=== PATIENT | male | born 1995 | race African-American/Black ===

== ENCOUNTER 2022-11-23 13:13 | Emergency (ER) | payer SELFPAY ==
[2022-11-23] MEDS ORDERED: KETOROLAC 30 MG/ML VIAL IVP STA (13:28)
[2022-11-23] MEDS ORDERED: LACTATED RINGERS 1,000 ML IV ONE ×2 (13:30→14:15)
[2022-11-23] MEDS ORDERED: ONDANSETRON 4 MG/2 ML (SDV) Z0FRAN IVP ONE (13:30)
[2022-11-23 13:38] LABS: BASOPHILS % (AUTO) 0 % (0-10); EOSINOPHILS # (AUTO) 0.3 10^3/uL (0.0-0.3); EOSINOPHILS % (AUTO) 2 % (0-10); HEMATOCRIT 41 % (40-54); LYMPHOCYTES # (AUTO) 1.8 10^3/uL (1.0-4.0); LYMPHOCYTES % (AUTO) 16 % (12-44); MEAN CORPUSCULAR HEMOGLOBIN 30 pg (25-34); MEAN CORPUSCULAR HGB CONC 34 g/dL (32-36); MEAN CORPUSCULAR VOLUME 89 fL (80-99); MEAN PLATELET VOLUME 9.3 fL (9.0-12.2); MONOCYTES # (AUTO) 0.6 10^3/uL (0.0-1.0); MONOCYTES % (AUTO) 5 % (0-12); NEUTROPHILS # (AUTO) 8.7 10^3/uL (1.8-7.8); NEUTROPHILS % (AUTO) 77 % (42-75); PLATELET COUNT 253 10^3/uL (130-400); WHITE BLOOD COUNT 11.3 10^3/uL (4.3-11.0)
[2022-11-23 13:40] LABS: ALBUMIN 4.5 GM/DL (3.2-4.5); CHLORIDE 103 MMOL/L (98-107); POTASSIUM 3.9 MMOL/L (3.6-5.0); SODIUM 139 MMOL/L (135-145)
[2022-11-23 13:41] LABS: CALCIUM 9.3 MG/DL (8.5-10.1)
[2022-11-23 13:42] LABS: GLUCOSE 121 MG/DL (70-105); TOTAL PROTEIN 7.2 GM/DL (6.4-8.2)
[2022-11-23 13:43] LABS: CARBON DIOXIDE 26 MMOL/L (21-32)
[2022-11-23 13:44] LABS: BILIRUBIN,TOTAL 0.7 MG/DL (0.1-1.0)
[2022-11-23 13:46] LABS: ALKALINE PHOSPHATASE 70 U/L (40-136); CREATININE SERUM 1.26 MG/DL (0.60-1.30); GFR ESTIMATED 80
[2022-11-23 13:47] LABS: BUN/CREATININE RATIO 12
[2022-11-23 13:49] LABS: ALANINE AMINOTRANSFERASE 17 U/L (0-55)
--- NOTE | 2022-11-23 13:58 | ED Abdominal Pain ---
General Chief Complaint: Abdominal/GI Problems Stated Complaint: RIGHT SIDE ABD PAIN Nursing Triage Note: PT AMB TO RM 3 WITH CC OF R LOWER ABD PAIN SINCE 0400 TODAY. PT STATES HE HAS HAD THIS PAIN BEFORE WHEN HE HAD "SWOLLEN KIDNEYS." PT REPORTS TROUBLE URINATING, NAUSEA AND VOMITING. PT A&OX4 Source of Information: Patient History of Present Illness Date Seen by Provider: Nov 23, 2022 Time Seen by Provider: 13:20 Initial Comments PT ARRIVES VIA POV C/O RLQ PAIN THAT WOKE HIM UP AT 0400 THIS AM PAIN IS WORSE WITH ANY MOVEMENT, WALKING, STRAINING TO HAVE A BM. HE HAD A HARD BM AROUND 10 AM TODAY--CAUSED PAIN IN RLQ PRIOR TO ARRIVAL, HE HAD DIFFICULTY URINATING--TRIED TO VOID AND ONLY WENT A SMALL AMOUNT HE HAS HAD NAUSEA AND VOMITING ON ARRIVAL HERE NO KNOWN FEVER. DRANK WATER EARLIER TODAY. NO FOOD SINCE YESTERDAY TRIED OVER THE COUNTER AZO, AND TOOK AN OXYCODONE THAT HE GOT FROM "A FRIEND:. NO RELIEF. STATES HE HAS THIS ONCE BEFORE AND WAS TOLD HIS KIDNEY WAS SWOLLEN, NO HISTORY OF KIDNEY STONES--NEVER FOLLOWED UP WITH UROLOGY. NO PRIOR ABDOMINAL SURGERIES NO HISTORY OF GI PROBLEMS. NO CHRONIC MEDICAL PROBLEMS HE VAPES NICOTINE, HE USED TO DRINK--CLAIMS NONE X 4 YEARS, GETS OXYCODONE OFF THE STREET--USES DAILY. PCP: NONE, PER PT. HOWEVER, PT HAS BEEN A PT OF DR. CLIFTON IN THE PAST Allergies and Home Medications Allergies Coded Allergies: No Known Drug Allergies (Unverified , 11/23/22) Patient Home Medication List Home Medication List Reviewed: Yes Ciprofloxacin HCl (Ciprofloxacin HCl) 500 Mg Tablet, 500 MG PO BID Prescribed by: MARGARET GAMBOA on 11/23/22 145 Ketorolac Tromethamine (Ketorolac Tromethamine) 10 Mg Tablet, 10 MG PO Q6H Prescribed by: MARGARET GAMBOA on 11/23/22 145 Ondansetron (Ondansetron Odt) 8 Mg Tab.rapdis, 8 MG PO Q6H Prescribed by: MARGARET GAMBOA on 11/23/22 145 Tamsulosin HCl (Flomax) 0.4 Mg Cap, 0.4 MG PO DAILY Prescribed by: MARGARET GAMBOA on 11/23/22 145 Review of Systems Review of Systems Constitutional: no symptoms reported Respiratory: No Symptoms Reported Cardiovascular: No Symptoms Reported Gastrointestinal: See HPI, Abdominal Pain, Constipated; Denies Diarrhea; Nausea, Vomiting Genitourinary: See HPI, Flank Pain, Pain, Urgency Musculoskeletal: see HPI, back pain Skin: no symptoms reported Psychiatric/Neurological: No Symptoms Reported Endocrine: No Symptoms Reported Hematologic/Lymphatic: No Symptoms Reported Past Nhnonol-Scjnlt-Xshmmm Hx Patient Social History Tobacco Use?: No Use of E-Cig and/or Vaping dev: Yes E-Cig or Vaping type used: Nicotine Use of E-Cig and/or Vaping Navjot: Current Everyday User Substance use?: Yes Substance type: Opiates/Opioids, Misuse of prescript meds, Other Substance frequency: Daily Alcohol Use?: Yes Pt feels they are or have been: No Past Medical History Surgeries: No Respiratory: No Cardiac: No Neurological: No Reproductive Disorders: No Genitourinary: Yes (RIGHT HYDRONEPHROSIS) Gastrointestinal: No Musculoskeletal: No Endocrine: No HEENT: No Cancer: No Psychosocial: No Integumentary: No Blood Disorders: No Family Medical History SOCIAL HISTORY: -DENIES SMOKING CIGARETTES -VAPES NICOTINE -DRUGS--ADMITS TO CHRONIC/DAILY OXYCODONE USE. UDS + FOR COCAINE AND THC ON 11/23/22 -ETOH--HISTORY OF HEAVY USE, CLAIMS NONE X 4 YEARS, PER PT ON 11/23/22 Physical Exam Vital Signs Vital Signs - First Documented 11/23/22 13:20 Temp 35.8 Pulse 78 Resp 16 B/P (MAP) 149/99 (116) Pulse Ox 99 O2 Delivery Room Air Capillary Refill : Less Than 3 Seconds Height/Weight/BMI Height: '" Weight: lbs. oz. kg; BMI Method: General Appearance: WD/WN, other (VERY DRAMATIC, WALKS IN BENT AT WAIST, HOLDING LOWER ABDOMEN. ) Neck: normal inspection Respiratory: normal breath sounds, no respiratory distress, no accessory muscle use Cardiovascular: regular rate, rhythm Gastrointestinal: normal bowel sounds, soft, no organomegaly, no pulsatile mass; No distended, No guarding, No rebound; tenderness (RLQ); No hernia, No mass Extremities: normal inspection Back: no vertebral tenderness, CVA tenderness (R) Neurologic/Psychiatric: home visits nurse II-XII nml as tested, no motor/sensory deficits, alert, oriented x 3 Skin: normal color (PT IS BLACK), warm/dry, tattoos/piercings (MULTIPLE TATTOOS) Progress/Results/Core Measures Results/Orders Lab Results Laboratory Tests Test 11/23/22 13:24 11/23/22 14:25 Range/Units White Blood Count 11.3 H 4.3-11.0 10^3/uL Red Blood Count 4.63 4.30-5.52 10^6/uL Hemoglobin 14.0 13.3-17.7 g/dL Hematocrit 41 40-54 % Mean Corpuscular Volume 89 80-99 fL Mean Corpuscular Hemoglobin 30 25-34 pg Mean Corpuscular Hemoglobin Concent 34 32-36 g/dL Red Cell Distribution Width 11.8 10.0-14.5 % Platelet Count 253 130-400 10^3/uL Mean Platelet Volume 9.3 9.0-12.2 fL Immature Granulocyte % (Auto) 0 % Neutrophils (%) (Auto) 77 H 42-75 % Lymphocytes (%) (Auto) 16 12-44 % Monocytes (%) (Auto) 5 0-12 % Eosinophils (%) (Auto) 2 0-10 % Basophils (%) (Auto) 0 0-10 % Neutrophils # (Auto) 8.7 H 1.8-7.8 10^3/uL Lymphocytes # (Auto) 1.8 1.0-4.0 10^3/uL Monocytes # (Auto) 0.6 0.0-1.0 10^3/uL Eosinophils # (Auto) 0.3 0.0-0.3 10^3/uL Basophils # (Auto) 0.0 0.0-0.1 10^3/uL Immature Granulocyte # (Auto) 0.0 0.0-0.1 10^3/uL Erythrocyte Sedimentation Rate 1 0-15 MM/HR Sodium Level 139 135-145 MMOL/L Potassium Level 3.9 3.6-5.0 MMOL/L Chloride Level 103 98-107 MMOL/L Carbon Dioxide Level 26 21-32 MMOL/L Anion Gap 10 5-14 MMOL/L Blood Urea Nitrogen 15 7-18 MG/DL Creatinine 1.26 0.60-1.30 MG/DL Estimat Glomerular Filtration Rate 80 BUN/Creatinine Ratio 12 Glucose Level 121 H 70-105 MG/DL Calcium Level 9.3 8.5-10.1 MG/DL Corrected Calcium 8.9 8.5-10.1 MG/DL Total Bilirubin 0.7 0.1-1.0 MG/DL Aspartate Amino Transf (AST/SGOT) 27 5-34 U/L Alanine Aminotransferase (ALT/SGPT) 17 0-55 U/L Alkaline Phosphatase 70 40-136 U/L C-Reactive Protein High Sensitivity 0.07 0.00-0.50 MG/DL Total Protein 7.2 6.4-8.2 GM/DL Albumin 4.5 3.2-4.5 GM/DL Serum Alcohol < 10 <10 MG/DL Urine Color MICHAEL H Urine Clarity CLEAR Urine pH 7.0 5-9 Urine Specific [place] 1.015 L 1.016-1.022 Urine Protein NEGATIVE NEGATIVE Urine Glucose (UA) NEGATIVE NEGATIVE Urine Ketones NEGATIVE NEGATIVE Urine Nitrite POSITIVE H NEGATIVE Urine Bilirubin NEGATIVE NEGATIVE Urine Urobilinogen 1.0 < = 1.0 MG/DL Urine Leukocyte Esterase NEGATIVE NEGATIVE Urine RBC (Auto) 1+ H NEGATIVE Urine RBC 5-10 H /HPF Urine WBC NONE /HPF Urine Squamous Epithelial Cells NONE /HPF Urine Crystals NONE /LPF Urine Bacteria NEGATIVE /HPF Urine Casts NONE /LPF Urine Mucus NEGATIVE /LPF Urine Other N /HPF Urine Culture Indicated NO Urine Opiates Screen NEGATIVE NEGATIVE Urine Oxycodone Screen NEGATIVE NEGATIVE Urine Methadone Screen NEGATIVE NEGATIVE Urine Propoxyphene Screen NEGATIVE NEGATIVE Urine Barbiturates Screen NEGATIVE NEGATIVE Ur Tricyclic Antidepressants Screen NEGATIVE NEGATIVE Urine Phencyclidine Screen NEGATIVE NEGATIVE Urine Amphetamines Screen NEGATIVE NEGATIVE Urine Methamphetamines Screen NEGATIVE NEGATIVE Urine Benzodiazepines Screen NEGATIVE NEGATIVE Urine Cocaine Screen POSITIVE H NEGATIVE Urine Cannabinoids Screen POSITIVE H NEGATIVE My Orders Orders - MARGARET GAMBOA DO Ed Iv/Invasive Line Start (11/23/22 13:28) Monitor-Rhythm Ecg Trace Only (11/23/22 13:28) Ct Abd/Pelvis Wo(Kidney Stone) (11/23/22 13:28) Abdomen/Kub 1view (11/23/22 13:28) Alcohol (11/23/22 13:28) Cbc With Automated Diff (11/23/22 13:28) Comprehensive Metabolic Panel (11/23/22 13:28) Hs C Reactive Protein (11/23/22 13:28) Drug Screen Stat (Urine) (11/23/22 13:28) Ua Culture If Indicated (11/23/22 13:28) Erythrocyte Sedimentation Rate (11/23/22 13:28) Ed Iv/Invasive Line Start (11/23/22 13:28) Lactated Ringers (Lr 1000 Ml Iv Solution (11/23/22 13:30) Ondansetron Injection (Zofran Injectio (11/23/22 13:30) Ketorolac Injection (Toradol Injection) (11/23/22 13:28) Ed Iv/Invasive Line Start (11/23/22 14:14) Lactated Ringers (Lr 1000 Ml Iv Solution (11/23/22 14:15) Tamsulosin Capsule (Flomax Capsule) (11/23/22 14:15) Orphenadrine Inj (Ed Only) (Norflex Inje (11/23/22 14:15) Ceftriaxone 1 Gm Pre-Mix (Rocephin 1 Gm (11/23/22 15:00) Medications Given in ED Current Medications Medications Dose Ordered Sig/Agustina Route Start Time Stop Time Status Last Admin Dose Admin Ceftriaxone Sodium/Dextrose 50 ml @ 100 mls/hr ONCE ONCE IV 11/23/22 15:00 11/23/22 15:22 DC 11/23/22 15:10 100 MLS/HR Lactated Ringer's 1,000 ml @ 0 mls/hr Q0M ONCE IV 11/23/22 13:30 11/23/22 13:31 DC 11/23/22 13:36 1,000 MLS/HR Lactated Ringer's 1,000 ml @ 0 mls/hr Q0M ONCE IV 11/23/22 14:15 11/23/22 14:16 DC 11/23/22 14:29 1,000 MLS/HR Ondansetron HCl 4 mg ONCE ONCE IVP 11/23/22 13:30 11/23/22 13:31 DC 11/23/22 13:36 4 MG Orphenadrine Citrate 60 mg ONCE ONCE IVP 11/23/22 14:15 11/23/22 14:16 DC 11/23/22 14:23 60 MG Vital Signs/I&O 11/23/22 11/23/22 13:20 15:19 Temp 35.8 Pulse 78 81 Resp 16 16 B/P (MAP) 149/99 (116) 157/82 Pulse Ox 99 100 O2 Delivery Room Air Room Air Blood Pressure Mean: 116 Progress Progress Note : Progress Note GIVEN: -IV FLUIDS -ZOFRAN -TORADOL -FLOMAX -NORFLEX UNEVENTFUL ER STAY VITALS STABLE. SYMPTOMS IMPROVED AT DISMISSAL. NO PRIOR RECORDS HERE. DISCUSSED TEST RESULTS, NEED FOR FOLLOW UP WITH UROLOGIST, MEDICATIONS AND RETURN PRECAUTIONS. Diagnostic Imaging Comments KUB--PER RADIOLOGIST REPORT AT 1402 FINDINGS: Bowel gas pattern is nonspecific. There are no abnormal abdominal calcifications. The osseous structures are unremarkable. IMPRESSION: Nonspecific bowel gas pattern. CT ABDOMEN/PELVIS--PER RADIOLOGIST REPORT AT 1402 INDICATION: Flank pain. FINDINGS: The heart size is normal. The lung bases are clear. The liver is normal in size without focal lesions. Gallbladder is unremarkable. There is no biliary duct dilatation. Spleen is normal. Pancreas and adrenal glands are unremarkable. The left kidney is normal. There is moderate right hydronephrosis and this may reflect a congenital UPJ stenosis or possibly recently passed stone. The aorta is nonaneurysmal. The bowel gas pattern is nonspecific. No free air. No ascites. No pelvic mass, adenopathy or free fluid. The osseous structures are unremarkable. IMPRESSION: Moderate right hydronephrosis without evidence of underlying stone. 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 Recommend clinical correlation and if warranted follow up with ultrasound. No other acute abnormality in the abdomen or pelvis. Reviewed: Reviewed by Me Departure Impression Primary Impression: Hydronephrosis of right kidney Additional Impressions: POSSIBLE UPJ OBSTRUCTION/STRICTURE Illicit drug use Urinary tract infection Disposition: 01 HOME, SELF-CARE Condition: Stable Departure-Patient Inst. Decision time for Depature: 14:54 Referrals: MOUSTAPHA MANCUSO DO (PCP/Family) Primary Care Physician Patient Instructions: Hydronephrosis, Adult (DC), Urinary Tract Infection, Adult (DC) Add. Discharge Instructions: NO DRUGS !!! FOLLOW UP WITH UROLOGIST OF CHOICE FOR FURTHER CARE--YOU MAY CALL [facility], OR [facility] OR [facility] IN [place] FOR LIST OF UROLOGISTS. CALL IN THE MORNING TO SCHEDULE AN APPOINTMENT. All discharge instructions reviewed with patient and/or family. Voiced understanding. Scripts Ciprofloxacin HCl (Ciprofloxacin HCl) 500 Mg Tablet 500 MG PO BID, #14 TAB Prov: MARGARET GAMBOA DO 4/9/23 Ondansetron (Ondansetron Odt) 8 Mg Tab.rapdis 8 MG PO Q6H, #10 TAB Prov: MARGARET GAMBOA DO 11/23/22 Ketorolac Tromethamine (Ketorolac Tromethamine) 10 Mg Tablet 10 MG PO Q6H for Pain, #15 TAB Prov: MARGARET GAMBOA DO 11/23/22 Tamsulosin HCl (Flomax) 0.4 Mg Cap 0.4 MG PO DAILY, #10 CAP Prov: MARGARET GAMBOA DO 11/23/22 MARGARET GAMBOA DO Nov 23, 2022 13:58
--- NOTE | 2022-11-23 14:00 | Diagnostic Imaging Report ---
PROCEDURE: CT urinary tract, rule out kidney stone. TECHNIQUE: Multiple contiguous axial images were obtained through the abdomen and pelvis without the use of intravenous contrast. Auto Exposure Controls were utilized during the CT exam to meet ALARA standards for radiation dose reduction. INDICATION: Flank pain. FINDINGS: The heart size is normal. The lung bases are clear. The liver is normal in size without focal lesions. Gallbladder is unremarkable. There is no biliary duct dilatation. Spleen is normal. Pancreas and adrenal glands are unremarkable. The left kidney is normal. There is moderate right hydronephrosis and this may reflect a congenital UPJ stenosis or possibly recently passed stone. The aorta is nonaneurysmal. The bowel gas pattern is nonspecific. No free air. No ascites. No pelvic mass, adenopathy or free fluid. The osseous structures are unremarkable. IMPRESSION: Moderate right hydronephrosis without evidence of underlying stone. 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 Recommend clinical correlation and if warranted follow up with ultrasound. No other acute abnormality in the abdomen or pelvis. Dictated by: Dictated on workstation # [id number]
--- NOTE | 2022-11-23 14:00 | Diagnostic Imaging Report ---
INDICATION: Abdominal pain. FINDINGS: Bowel gas pattern is nonspecific. There are no abnormal abdominal calcifications. The osseous structures are unremarkable. IMPRESSION: Nonspecific bowel gas pattern. Dictated by: Dictated on workstation # [id number]
[2022-11-23 14:07] LABS: ERYTHROCYTE SEDIMENTATION RATE 1 MM/HR (0-15)
[2022-11-23] MEDS ORDERED: ORPHENADRINE 60 MG/2 ML (NORFLEX) AMP (ED ONLY) IVP ONE (14:15)
[2022-11-23] MEDS ORDERED: TAMSULOSIN 0.4 MG (FLOMAX) CAP PO SCH (14:15)
[2022-11-23 14:33] LABS: BILIRUBIN,URINE NEGATIVE (NEGATIVE); CLARITY,URINE CLEAR; COLOR,URINE AMBER; GLUCOSE, URINE (UA) NEGATIVE (NEGATIVE); KETONES,URINE NEGATIVE (NEGATIVE); LEUKOCYTE ESTERASE ,URINE NEGATIVE (NEGATIVE); PROTEIN,URINE NEGATIVE (NEGATIVE)
[2022-11-23 14:51] LABS: URINE OTHER N /HPF
[2022-11-23 14:52] LABS: AMPHETAMINE SCREEN, URINE NEGATIVE (NEGATIVE); BARBITURATE SCREEN URINE NEGATIVE (NEGATIVE); BENZODIAZEPINES SCREEN URINE NEGATIVE (NEGATIVE); CANNABINOID SCREEN, URINE POSITIVE (NEGATIVE); COCAINE SCREEN URINE POSITIVE (NEGATIVE); METHADONE STAT NEGATIVE (NEGATIVE); OPIATE SCREEN URINE NEGATIVE (NEGATIVE); OXYCODONE STAT NEGATIVE (NEGATIVE); PROPOXYPHENE STAT NEGATIVE (NEGATIVE); TRICYCLIC ANTIDEPRESSANTS SCRE NEGATIVE (NEGATIVE)
[2022-11-23 14:56] LABS: BACTERIA,URINE NEGATIVE /HPF
[2022-11-23 14:58] LABS: NITRITE,URINE POSITIVE (NEGATIVE)
[2022-11-23] MEDS ORDERED: KETO10TA PO (14:58)
[2022-11-23] MEDS ORDERED: TMSL.4C PO (14:58)
[2022-11-23] MEDS ORDERED: ONDA8TAB13 PO (14:58)
[2022-11-23] MEDS ORDERED: CIPR500T5 PO (14:58)
[2022-11-23] MEDS ORDERED: cefTRIAXone PRE-MIX 50 ML IV ONE (15:00)
[2022-11-23 15:19] VITALS: BP 157/82
== END 2022-11-23 15:19 | disposition home or self-care (01) ==
LOC: EDUNIT# 13:13 → ER 13:15
DX: N13.30 Unspecified hydronephrosis (principal); N39.0 Urinary tract infection, site not specified; F19.90 Other psychoactive substance use, unspecified, uncomplicated; F17.290 Nicotine dependence, other tobacco product, uncomplicated; Z28.310 Unvaccinated for COVID-19
CPT/HCPCS: 74018; 74176; 80053; 80306; 81000; 85025; 85652; 86141; 99284; G0480; 36415; 80320